=== PATIENT | female | born 1955 | race Caucasian/White ===

== ENCOUNTER 2018-02-22 08:05 | Emergency (ER) | payer OTHER ==
[~2018-02-22] VITALS: Ht 160 cm; Wt 79.4 kg
[2018-02-22] MEDS ORDERED: COZAAR 50 MG TA50 M2 PO (08:15)
[2018-02-22] MEDS ORDERED: LOPRESSOR50 PO (08:15)
[2018-02-22] MEDS ORDERED: LIPITOR10 MG PO (08:16)
[2018-02-22] MEDS ORDERED: HYDROCHLOROTHIA25 M2 PO (08:16)
[2018-02-22 09:00] VITALS: BP 136/62
[2018-02-22 09:28] LABS: ABSOLUTE NEUTROPHILS 9.2 thou/uL (1.4-8.2); BASOPHILS 0.5 % (0.0-2.0); EOSINOPHILS 0.6 % (0.0-3.0); HEMATOCRIT 36.2 % (37.0-47.0); HEMOGLOBIN 12.1 gm/dL (12.0-15.0); LYMPHOCYTES 19.5 % (24.0-44.0); MCH 30.4 pg (26.0-34.0); MCHC 33.5 g/dL (28.0-37.0); MCV 90.8 fL (80.0-100.0); MONOCYTES 8.3 % (1.0-8.0); PLATELET COUNT 180 thou/uL (150-400); POLYS 71.1 % (36.0-66.0); RBC 3.99 mil/uL (4.20-5.00); WBC 12.9 thou/uL (4.0-11.0)
[2018-02-22 09:40] LABS: CALCIUM 9.4 mg/dL (8.5-10.1); CREATININE 1.2 mg/dL (0.6-1.0)
[2018-02-22 09:44] LABS: POTASSIUM 2.9 mmol/L (3.5-5.1)
[2018-02-22 09:46] LABS: ALBUMIN 3.8 g/dL (3.4-5.0); TOTAL BILIRUBIN 0.8 mg/dL (<0.1-1.0); TOTAL PROTEIN 7.6 g/dL (6.4-8.2); URIC ACID* 5.8 mg/dL (2.6-7.2)
== END 2018-02-22 18:07 | disposition home or self-care (01) ==
LOC: ER 08:05
PROVIDERS: Emergency Medicine
DX: M06.9 Rheumatoid arthritis, unspecified (principal); M19.90 Unspecified osteoarthritis, unspecified site; E87.6 Hypokalemia; Z88.0 Allergy status to penicillin